=== PATIENT | male | born 1940 | race Caucasian/White ===

== ENCOUNTER 2019-01-15 15:57 | Emergency (ER) | payer OTHER ==
[~2019-01-15] VITALS: Ht 170.2 cm; Wt 79.8 kg
[2019-01-15 16:00] VITALS: Ht 170.2 cm; Wt 79.8 kg
[2019-01-15 17:44] VITALS: BP 132/86
== END 2019-01-15 17:42 | disposition home or self-care (01) ==
LOC: ED 15:57
DX: S61.451A Open bite of right hand, initial encounter (principal); E11.9 Type 2 diabetes mellitus without complications; Z88.2 Allergy status to sulfonamides; W54.0XXA Bitten by dog, initial encounter; Y93.89 Activity, other specified; Y92.89 Other specified places as the place of occurrence of the external cause; Y99.8 Other external cause status
CPT/HCPCS: 82962; J0295